=== PATIENT | male | born 1975 ===

== ENCOUNTER 2017-03-29 18:55 | Emergency (ER) | payer OTHER ==
[2017-03-29 19:17] VITALS: RESP 16
--- NOTE | 2017-03-29 19:51 | ED PDOC ---
HPI: General Adult Time Seen by Provider: 03/29/17 19:20 Chief Complaint (Nursing): Fever Chief Complaint (Provider): fever History Per: Patient History/Exam Limitations: no limitations Onset/Duration Of Symptoms: Days (1/2 day), Sudden Onset, Persistent Additional Complaint(s): Fever, chills, vomiting nonbilious nonbloody, body aches, malaise, fatigue suddenly since 12pm No respiratory symptoms No urinary symptoms Took med but symptoms returned. Past Medical History Reviewed: Historical Data, Nursing Documentation, Vital Signs Vital Signs: Last Vital Signs Temp 98.7 F 03/29/17 21:44 Pulse 74 03/29/17 21:44 Resp 16 03/29/17 21:44 BP 105/54 L 03/29/17 21:44 Pulse Ox 96 03/29/17 21:44 - Medical History PMH: Hepatitis (C) Denies: HIV - Surgical History Surgical History: No Surg Hx - Family History Family History: States: Unknown Family Hx - Social History Current smoker - smoking cessation education provided: No Alcohol: None - Home Medications Home Medications: Ambulatory Orders Medication Instructions Recorded Cephalexin [cephalexin] 500 mg PO BID #14 cap 10/01/16 Ibuprofen [Motrin] 600 mg PO Q6 #20 tab 10/01/16 oxyCODONE/Acetaminophen [Percocet 1 ea PO Q6 PRN #10 tab 10/01/16 5/325 mg Tab] Ibuprofen [Motrin Tab] 600 mg PO Q8 PRN #60 tab 03/29/17 - Allergies Allergies/Adverse Reactions: Allergies Allergy/AdvReac Type Severity Reaction Status Date / Time No Known Allergies Allergy Verified 04/30/16 12:14 Review of Systems ROS Statement: Except As Marked, All Systems Reviewed And Found Negative (and as per HPI) Constitutional: Positive for: Fever, Chills, Weakness, Malaise ENT: Negative for: Nose Discharge, Nose Congestion, Throat Pain Cardiovascular: Positive for: Light Headedness. Negative for: Chest Pain, Palpitations Respiratory: Negative for: Cough, Sputum Gastrointestinal: Positive for: Nausea, Vomiting. Negative for: Abdominal Pain , Diarrhea Genitourinary Male: Negative for: Dysuria, Frequency, Rash Musculoskeletal: Positive for: Neck Pain, Shoulder Pain, Arm Pain, Back Pain, Leg Pain Skin: Negative for: Rash, Lesions Neurological: Positive for: Headache, Dizziness. Negative for: Weakness, Numbness Physical Exam - Reviewed Nursing Documentation Reviewed: Yes Vital Signs Reviewed: Yes - Physical Exam Appears: Positive for: Uncomfortable, In Acute Distress (mild painful) Head Exam: Positive for: ATRAUMATIC, NORMOCEPHALIC Skin: Positive for: Warm, Dry Eye Exam: Positive for: EOMI, PERRL ENT: Positive for: Other (tacky muc membranes). Negative for: Pharyngeal Erythema, Tonsillar Exudate Neck: Positive for: Painless ROM, Supple (No meningismus) Cardiovascular/Chest: Positive for: Regular Rate, Rhythm, Chest Non Tender. Negative for: Murmur Respiratory: Positive for: Normal Breath Sounds. Negative for: Accessory Muscle Use, Rales, Wheezing, Respiratory Distress Gastrointestinal/Abdominal: Positive for: Bowel Sounds, Soft. Negative for: Tenderness Back: Positive for: Normal Inspection. Negative for: Vertebral Tenderness Extremity: Positive for: Normal ROM. Negative for: Pedal Edema, Deformity Lymphatic: Negative for: Adenopathy Neurologic/Psych: Positive for: Alert. Negative for: Motor/Sensory Deficits - Laboratory Results Result Diagrams: 03/29/17 20:09 03/29/17 20:09 Interpretation Of Abn Labs: No clinically emergent lab abnormalities. - ECG O2 Sat by Pulse Oximetry: 97 Pulse Ox Interpretation: Normal - Progress Re-evaluation Time: 23:11 Condition: Improved Disposition - Clinical Impression Clinical Impression: Fever, Viral illness - Disposition Referrals: [facility] [Outside] - 03/31/17 Disposition: Routine/Home Disposition Time: 22:00 Condition: IMPROVED Prescriptions: Ibuprofen [Motrin Tab] 600 mg PO Q8 PRN #60 tab PRN Reason: Pain, Moderate (4-7) Instructions: Viral Syndrome (ED), Fever in Adults (ED) Forms: [facility] ED School/Work Excuse Print Language: OCCITAN
[2017-03-29] MEDS: Sodium Chloride 0.9% 1,000 ML IV STA (20:10)
[2017-03-29 20:39] LABS: BASO % 0.4 % (0.0-2.0); EOS % 0.2 % (0.0-4.0); HEMOGLOBIN 13.3 g/dL (12.0-18.0); LYMPH # 0.4 K/uL (1.0-4.3); LYMPH % 6.7 % (20.0-40.0); MEAN CELL VOLUME 94.9 fl (80.0-94.0); MEAN CORPUSCULAR HEMOGLOBIN 31.9 pg (27.0-31.0); MEAN CORPUSCULAR HGB CONC 33.6 g/dL (33.0-37.0); MEAN PLATELET VOLUME 9.8 fl (7.2-11.7); MONO # 0.3 K/uL (0.0-0.8); MONO % 5.3 % (0.0-10.0); NEUT # 5.2 K/uL (1.8-7.0); NEUT % 87.4 % (50.0-75.0); NRBC % 0.1 % (0.0-0.0); PLATELET COUNT 158 K/uL (130-400); RBC 4.17 Mil/uL (4.40-5.90); WHITE BLOOD COUNT 5.9 K/uL (4.8-10.8)
[2017-03-29 20:50] LABS: INR 1.2 (0.9-1.2); PARTIAL THROMBOPLASTIN TIME 38.6 Seconds (25.6-37.1); PROTHROMBIN TIME 13.6 Seconds (9.8-13.1)
[2017-03-29 20:55] LABS: ALB/GLOB RATIO 1.3 (1.0-2.1); ALBUMIN 4.7 g/dL (3.5-5.0); ALT/SGPT 55 U/L (21-72); AST/SGOT 42 U/L (17-59); BLOOD UREA NITROGEN 12 mg/dl (9-20); CALCIUM 9.2 mg/dL (8.4-10.2); GFR AFRICAN-AMERICAN > 60; GFR NON-AFRICAN AMERICAN > 60; LIPASE 116 U/L (23-300)
[2017-03-29 21:23] LABS: URINE BILIRUBIN NEGATIVE (NEGATIVE); URINE BLOOD NEGATIVE (NEGATIVE); URINE CLARITY CLEAR (Clear); URINE COLOR YELLOW (YELLOW); URINE GLUCOSE (UA) NEG (Normal); URINE LEUKOCYTE ESTERASE TRACE Leu/uL (Negative); URINE NITRATE NEGATIVE (NEGATIVE); URINE PROTEIN NEGATIVE (NEGATIVE); URINE UROBILINOGEN 0.2-1.0 mg/dL (0.2-1.0)
[2017-03-29 21:39] LABS: BENZODIAZEPINES, UR NEGATIVE (NEGATIVE); OPIATES, UR NEGATIVE (NEGATIVE)
[2017-03-29 21:45] VITALS: BP 105/54; PULSE 74; TEMP 98.7
[2017-03-29 21:48] LABS: BARBITURATES, UR NEGATIVE (NEGATIVE)
[2017-03-29 21:49] LABS: PHENCYCLIDINE, UR NEGATIVE (NEGATIVE)
[2017-03-29 22:05] LABS: ANISOCYTOSIS SLIGHT; LYMPHOCYTE 7 % (20-50); MONOCYTE 6 % (0-10); NEUTROPHIL 87 % (42-75); PLATELET ESTIMATE NORMAL (NORMAL); TOTAL CELLS COUNTED 100
[2017-03-29 23:11] VITALS: O2SAT 97
== END 2017-03-29 23:15 | disposition home or self-care (01) ==
LOC: H.ER 18:55
DX: B34.9 Viral infection, unspecified (principal)

== ENCOUNTER 2017-03-30 16:01 | Observation (INO) | payer OTHER ==
[2017-03-30 16:16] VITALS: RESP 18
[2017-03-30] MEDS ORDERED: Sodium Chloride 0.9% 2,000 ML IV ONE (16:45)
--- NOTE | 2017-03-30 16:45 | ED PDOC ---
Arrival/HPI - General Chief Complaint: Fever Time Seen by Provider: 03/30/17 16:22 - History of Present Illness Narrative History of Present Illness (Text): 03/30/17 16:44 Patient is a 41 y/o M presenting complaining of vomiting. Patient was seen in the ED yesterday for fever/chills and vomiting and was discharged home with diagnosis of viral syndrome after negative CBC, CMP, UA, Utox, influenza and strep). Patient reports that he has had persistent nausea and has not been able to eat anything. He reports that he has now developed a mild headache. Reports subjective fever and chills. Denies abdominal pain, diarrhea, constipation. Patient reports that he was admitted for similar symptoms last year (chart review shows admitted in 04/2015 for similar symptoms, diagnosed with fever of unknown origin (after negative ID workup) and he reports that symptoms were far worse last time. Janitorial Tech Phone: Allie [phone] Past Medical History - Infectious Disease Hx of Infectious Diseases: None - Reproductive Currently : No - Hematological/Oncological Hx AIDS: No Hx Hepatitis C: Yes - Musculoskeletal/Rheumatological Hx Falls: No - Gastrointestinal Other/Comment: Hepatitis C - Psychiatric Hx Substance Use: No - Anesthesia Hx Anesthesia: No Hx Anesthesia Reactions: No Hx Malignant Hyperthermia: No - Suicidal Assessment Feels Threatened In Home Enviroment: No Family/Social History Family/Social History: No Known Family HX Smoking Status: Never Smoked Hx Alcohol Use: No Hx Substance Use: No Allergies/Home Meds Allergies/Adverse Reactions: Allergies No Known Allergies Allergy (Verified 04/30/16 12:14) Review of Systems - Review of Systems Constitutional: Fevers (subjective), Night Sweats Eyes: absent: Vision Changes ENT: absent: Hearing Changes Respiratory: absent: SOB, Cough, Sputum, Wheezing Cardiovascular: absent: Chest Pain, Palpitations, Edema, Calf Pain, KENYON, Orthopnea, Syncope Gastrointestinal: Nausea, Vomiting. absent: Abdominal Pain, Diarrhea Genitourinary Male: Other (dark urine). absent: Dysuria, Frequency, Urinary Output Changes Musculoskeletal: Arthralgias Skin: absent: Rash Neurological: Headache. absent: Dizziness, Focal Weakness, Gait Changes, Speech Changes, Facial Droop, Disequilibrium Physical Exam Vital Signs Temp Pulse Resp BP Pulse Ox 03/30/17 21:02 98.2 F 77 18 115/51 L 100 03/30/17 20:50 98 07/13/17 18:26 98.7 F 74 114/63 98 03/30/17 16:14 99 F 84 18 125/56 L 99 Medical Decision Making ED Course and Treatment: Patient presenting with persistent vomiting. Now complaining of some headache. Neck supple and afebrile in ED. No meningeal signs 03/30/17 18:10 Cxray negative 03/30/17 18:34 Labs resulted and CBC WNL (wbc 4.9 and hgb:13.4). CMP shows low K and phos which was replaced. Mild elevation in LFTs. CK 223 which is improved from yesterday. HIV non-reactive. UA is tahmina colored with trace ketones, 9 rbcs and [address] abd/pelvis without contrast ordered to evaluate further. 03/30/17 18:58 CT shows "No significant or acute findings to account for/ related to the clinical presentation. Additional benign and/or incidental findings described above." Patient is currently getting IVF. Will po challenge and have Dr. Castellanos reevaluate and keep for intractable vomiting if he does not tolerate po. - Lab Interpretations Microbiology Results: Microbiology Results 03/30/17 16:45 Blood Blood Culture - Preliminary NO GROWTH AFTER 3 DAYS 03/30/17 16:45 Urine Urine Culture - Final No Growth (<1,000 CFU/ML) Lab Results: 03/30/17 16:45 03/30/17 16:45 Lab Results 03/30/17 16:45: PT 15.8 H, INR 1.4 H, APTT 36.1 03/30/17 16:45: Urine Color Tahmina, Urine Clarity Clear, Urine pH 5.0, Ur Specific [place] 1.030, Urine Protein 30, Urine Glucose (UA) Neg, Urine Ketones Trace, Urine Blood Negative, Urine Nitrate Negative, Urine Bilirubin Negative, Urine Urobilinogen 2.0, Ur Leukocyte Esterase Neg, Urine RBC (Auto) 9 H, Urine Microscopic WBC 2, Ur Squamous Epith Cells < 1, Urine Bacteria Rare 03/30/17 16:45: HIV-1 Ab Rapid Screen Non reactive 03/30/17 16:45: WBC 4.9, RBC 4.30 L, Hgb 13.4, Hct 41.1, MCV 95.7 H, MCH 31.2 H , MCHC 32.6 L, RDW 13.2, Plt Count 127 L D, MPV 9.9, Neut % (Auto) 92.6 H, Lymph % (Auto) 3.6 L, Emanuel % (Auto) 3.2, Eos % (Auto) 0.1, Baso % (Auto) 0.5, Neut # 4.5, Lymph # 0.2 L, Emanuel # 0.2, Eos # 0.0, Baso # 0.0, Total Counted Cancelled, Neutrophils % (Manual) 92 H, Band Neutrophils % 1, Lymphocytes % ( Manual) 3 L, Reactive Lymphs % Cancelled, Monocytes % (Manual) 4, Eosinophils % (Manual) Cancelled, Basophils % (Manual) Cancelled, Metamyelocytes % Cancelled, Myelocytes % Cancelled, Promyelocytes % Cancelled, Blast Cells % Cancelled, Plasma Cell % (Manual) Cancelled, Nucleated RBC % Cancelled, Hypersegmented Polys Cancelled, Smudge Cells Cancelled, Toxic Granulation Cancelled, Dohle Bodies Cancelled, Jaime Rods Cancelled, Platelet Estimate Normal, Plt Clumps, EDTA Cancelled, Large Platelets Present, Giant Platelets Present, RBC Morphology Cancelled, Polychromasia Cancelled, Hypochromasia (manual) Cancelled , Poikilocytosis (manual Cancelled, Basophilic Stippling Cancelled, Anisocytosis (manual) Slight, Microcytosis (manual) Cancelled, Macrocytosis ( manual) Cancelled, Spherocytes Cancelled, Sickle Cells Cancelled, Target Cells Cancelled, Tear Drop Cells Cancelled, Ovalocytes Cancelled, Stomatocytes Cancelled, Helmet Cells Cancelled, [place] Bodies Cancelled, Payton Cells Cancelled, Acanthocytes (Spur) Cancelled, Rouleaux Cancelled, Schistocytes Cancelled 03/30/17 16:45: Sodium 136, Potassium 3.3 L, Chloride 102, Carbon Dioxide 24, Anion Gap 13, BUN 12, Creatinine 1.2, Est GFR ( Amer) > 60, Est GFR (Non- Af Amer) > 60, Random Glucose 94, Calcium 8.7, Phosphorus 2.0 L, Magnesium 1.7, Total Bilirubin 0.9, AST 81 H D, ALT 75 H D, Alkaline Phosphatase 92, Total Creatine Kinase 223 H, CK-MB (Mass) 0.27, Total Protein 7.5, Albumin 4.1, Globulin 3.3, Albumin/Globulin Ratio 1.2, Lipase 102 - RAD Interpretation Radiology Orders: 03/30/17 16:42 CHEST PORTABLE [RAD] Stat 03/30/17 18:19 ABD & PELVIS W/O PO OR IV CONT [CT] Stat - Medication Orders Current Medication Orders: Discontinued Medications Acetaminophen (Tylenol 325mg Tab) 650 mg PO STAT STA Stop: 03/30/17 16:56 Last Admin: 03/30/17 17:02 Dose: 650 mg Re-Assess: LIEN Pain/Vitals Document 03/30/17 18:02 HPB (Rec: 03/30/17 18:45 HPB [id number]) Pain Reassessment Is This A Pain ReAssessment? No Sleep Is patient sleeping during reassessment? No Presence of Pain Presence of Pain Yes Pain Scale Used Pain Scale Used Numeric Acetaminophen (Tylenol 325mg Tab) Confirm Administered Dose 650 mg .ROUTE .STK- MED ONE Stop: 03/30/17 17:00 Sodium Chloride (Sodium Chloride 0.9%) 2,000 mls @ 1,000 mls/hr IV .Q2H ONE Stop: 03/30/17 18:44 Last Admin: 03/30/17 17:01 Dose: 1,000 mls/hr Sodium Chloride (Sodium Chloride 0.9%) Confirm Administered Dose 50 mls @ ud IV .STK-MED ONE Stop: 03/30/17 18:05 Iohexol (Omnipaque 300 100 Ml) Confirm Administered Dose 100 ml IJ .STK-MED ONE Stop: 03/30/17 18:05 Ondansetron HCl (Zofran Inj) 4 mg IVP STAT STA Stop: 03/30/17 16:48 Last Admin: 03/30/17 17:03 Dose: 4 mg Ondansetron HCl (Zofran Inj) Confirm Administered Dose 4 mg .ROUTE .STK-MED ONE Stop: 03/30/17 17:01 Potassium Chloride (K-Dur 20 Meq Er Tab) 20 meq PO STAT STA Stop: 03/30/17 18:26 Last Admin: 03/30/17 18:50 Dose: 20 meq Potassium Chloride (K-Dur 20 Meq Er Tab) Confirm Administered Dose 20 meq PO .STK-MED ONE Stop: 03/30/17 18:45 Potassium Phos/Sodium Phos (Neutra-Phos) 1 pkt PO STAT STA Stop: 03/30/17 18:25 Last Admin: 03/30/17 18:51 Dose: 1 pkt ED OBSERVATION Date of observation admission: 03/30/17 Time of observation admission: 19:12 - Observation admission statement Patient is being placed in observation because:: intractable vomiting - Goals of Observation Goals of observation are:: IV hydration Disposition/Present on Arrival - Present on Arrival Any Indicators Present on Arrival: No History of DVT/PE: No History of Uncontrolled Diabetes: No Urinary Catheter: No - Disposition Have Diagnosis and Disposition been Completed?: Yes Diagnosis: Viral syndrome Disposition: HOME/ ROUTINE Disposition Time: 19:12 Condition: STABLE
[2017-03-30 17:11] LABS: BASO % 0.5 % (0.0-2.0); EOS % 0.1 % (0.0-4.0); HEMOGLOBIN 13.4 g/dL (12.0-18.0); LYMPH # 0.2 K/uL (1.0-4.3); LYMPH % 3.6 % (20.0-40.0); MEAN CELL VOLUME 95.7 fl (80.0-94.0); MEAN CORPUSCULAR HEMOGLOBIN 31.2 pg (27.0-31.0); MEAN CORPUSCULAR HGB CONC 32.6 g/dL (33.0-37.0); MEAN PLATELET VOLUME 9.9 fl (7.2-11.7); MONO # 0.2 K/uL (0.0-0.8); MONO % 3.2 % (0.0-10.0); NEUT # 4.5 K/uL (1.8-7.0); NEUT % 92.6 % (50.0-75.0); NRBC % 0.1 % (0.0-0.0); PLATELET COUNT 127 K/uL (130-400); RED CELL DISTRIBUTION WIDTH 13.2 % (11.5-14.5); WHITE BLOOD COUNT 4.9 K/uL (4.8-10.8)
[2017-03-30 17:16] LABS: SQUAMOUS EPITHIAL < 1 /hpf (0-5); URINE BACTERIA RARE (<OCC); URINE BILIRUBIN NEGATIVE (NEGATIVE); URINE BLOOD NEGATIVE (NEGATIVE); URINE CLARITY CLEAR (Clear); URINE COLOR AMBER (YELLOW); URINE GLUCOSE (UA) NEG (Normal); URINE LEUKOCYTE ESTERASE NEG Leu/uL (Negative); URINE NITRATE NEGATIVE (NEGATIVE); URINE PROTEIN 30 mg/dL (NEGATIVE)
--- NOTE | 2017-03-30 17:21 | RAD ---
HISTORY: subjective fever COMPARISON: 04/24/2015 FINDINGS: LUNGS: No active pulmonary disease. PLEURA: No significant pleural effusion identified, no pneumothorax apparent. CARDIOVASCULAR: Normal. OSSEOUS STRUCTURES: No significant abnormalities. VISUALIZED UPPER ABDOMEN: Normal. OTHER FINDINGS: None. IMPRESSION: No active disease. No significant interval change compared to the prior examination(s).
[2017-03-30 17:32] LABS: ALB/GLOB RATIO 1.2 (1.0-2.1); ALBUMIN 4.1 g/dL (3.5-5.0); ALT/SGPT 75 U/L (21-72); AST/SGOT 81 U/L (17-59); BLOOD UREA NITROGEN 12 mg/dl (9-20); CALCIUM 8.7 mg/dL (8.4-10.2); GFR AFRICAN-AMERICAN > 60; GFR NON-AFRICAN AMERICAN > 60; LIPASE 102 U/L (23-300); MAGNESIUM 1.7 MG/DL (1.6-2.3)
[2017-03-30 17:36] LABS: INR 1.4 (0.9-1.2); PARTIAL THROMBOPLASTIN TIME 36.1 Seconds (25.6-37.1); PROTHROMBIN TIME 15.8 Seconds (9.8-13.1)
[2017-03-30 17:40] LABS: CK-MB 0.27 ng/mL (0.0-3.38)
[2017-03-30] MEDS ORDERED: Sodium Chloride 0.9% 0 ML IV ONE (18:04)
[2017-03-30] MEDS ORDERED: Iohexol 300 100 ML IJ ONE (18:04)
[2017-03-30] MEDS ORDERED: Potassium & Sodium Phosphate PO STA (18:24)
[2017-03-30] MEDS ORDERED: Potassium Chloride 20 mEq ER Tab PO STA (18:25)
[2017-03-30] MEDS ORDERED: Potassium Chloride 20 mEq ER Tab PO ONE (18:44)
--- NOTE | 2017-03-30 19:03 | CT ---
PROCEDURE: CT Abdomen and Pelvis without intravenous contrast HISTORY: hematuria COMPARISON: 04/23/2015 CT abdomen pelvis TECHNIQUE: Unenhanced study. Neither oral nor intravenous contrast administered. Radiation dose: Total exam DLP = 706.15 mGy-cm. This CT exam was performed using one or more of the following dose reduction techniques: Automated exposure control, adjustment of the mA and/or kV according to patient size, and/or use of iterative reconstruction technique. FINDINGS: LOWER THORAX: Unremarkable. LIVER: Unremarkable. No gross lesion or ductal dilatation. GALLBLADDER AND BILE DUCTS: Unremarkable. PANCREAS: Unremarkable. No gross lesion or ductal dilatation. SPLEEN: Unremarkable. ADRENALS: Unremarkable. No mass. KIDNEYS AND URETERS: Unremarkable. No hydronephrosis. No solid mass. VASCULATURE: Unremarkable. No aortic aneurysm. BOWEL: Unremarkable. No obstruction. No gross mural thickening. APPENDIX: No abnormalities to suggest acute appendicitis. No right lower quadrant inflammatory processes identified. PERITONEUM: Unremarkable. No free fluid. No free air. LYMPH NODES: Unremarkable. No enlarged lymph nodes. BLADDER: Unremarkable. REPRODUCTIVE: Unremarkable. BONES: No acute fracture. OTHER FINDINGS: Benign-appearing intra-abdominal calcification less than 1 cm likely dystrophic common not felt to be clinically consequential. IMPRESSION: No significant or acute findings to account for/ related to the clinical presentation. Additional benign and/or incidental findings described above.
--- NOTE | 2017-03-30 19:18 | ED PDOC ---
- Laboratory Results Result Diagrams: 03/30/17 16:45 03/30/17 16:45 - ECG O2 Sat by Pulse Oximetry: 98 (RA) Pulse Ox Interpretation: Normal Medical Decision Making Medical Decision Making: Receiving Sign Out: Patient signed out to me by Dr. Campbell pending reevaluation and final disposition. Scribe Attestation: Documented by Daniella Tatum acting as a scribe for Dustin Castellanos MD. Provider Attestation: All medical record entries made by the Scribe were at my direction and personally dictated by me. I have reviewed the chart and agree that the record accurately reflects my personal performance of the history, physical exam, medical decision making, and the department course for this patient. I have also personally directed, reviewed, and agree with the discharge instructions and disposition. Disposition - Clinical Impression Clinical Impression: Viral syndrome - POA Present On Arrival: None - Disposition Disposition: Routine/Home Disposition Time: 19:11 Condition: STABLE ED OBSERVATION Date of observation admission: 03/30/17 Time of observation admission: 19:11 - Progress Note Progress Note: 03/30/17 20:49 Labs reviewed and indicate no clinically significant results. Patient reports feeling much better, is stable for discharge home. Final diagnosis: viral syndrome
[2017-03-30 20:43] LABS: BANDS 1 % (0-2); LYMPHOCYTE 3 % (20-50); MONOCYTE 4 % (0-10); NEUTROPHIL 92 % (42-75); PLATELET ESTIMATE NORMAL (NORMAL); TOTAL CELLS COUNTED 100
[2017-03-30 20:44] LABS: ANISOCYTOSIS SLIGHT; GIANT PLATELETS PRESENT; LARGE PLATELETS PRESENT
[2017-03-30 21:02] VITALS: BP 115/51; PULSE 77; TEMP 98.2; O2SAT 100
== END 2017-03-30 21:08 | disposition home or self-care (01) ==
LOC: H.ER 16:01 → H.EROBSV 19:11
PROVIDERS: ADMIT Emergency Medicine; ATTEND Emergency Medicine
DX: B34.9 Viral infection, unspecified (principal)

== ENCOUNTER 2017-04-09 14:39 | Emergency (ER) | payer OTHER ==
[2017-04-09] MEDS ORDERED: Sodium Chloride 0.9% 1,000 ML IV STA (15:26)
--- NOTE | 2017-04-09 15:32 | ED PDOC ---
HPI: Headache Time Seen by Provider: 04/09/17 14:57 Chief Complaint (Nursing): Headache Chief Complaint (Provider): Headache History Per: Patient History/Exam Limitations: no limitations Onset/Duration Of Symptoms: Days (3) Current Symptoms Are (Timing): Still Present Associated Symptoms: denies: Photophobia, Blurred Vision, Nausea, Vomiting, Extremity Weakness Additional History Per: Patient Additional Complaint(s): The patient is a 41yo male, past medical history of Hepatitis C (per prior records) presents to the ED for evaluation of headache associated with bodyaches , present for the past three days. He also reports associated mild neck pain and nausea. Patient denies any associated vomiting, rhinorrhea, nasal congestion , cough, vision changes, abdominal pain, diarrhea, dysuria, urinary symptoms, shortness of breath, numbness and tingling. Of note, patient reports he was in this ED 10 days ago for similar complaints, he was initially seen on 03/29/17 and upon review of chart, patient had CBC, CMP, UA, Utox, influenza and strep reviewed which were all negative and was discharge home with a diagnosis of viral disease. Patient then presented to this ED on 03/30/17 with persistent symptoms and had repeat labs which were within normal limits, CT AP with no acute findings. Patient was given IV fluids as well as K-Dur, Neutra-Phos, a PO challenge which he tolerated and was discharged home. Patient currently reports after his visit on 03/30 his symptoms resolved within 3 days of that visit but then presented again three days ago, prompting his visit today. Upon further review of previous charts, patient was admitted for similar symptoms in 05/02 and was diagnosed with fever of unknown origin after a negative ID workup. Patient currently states this is not the worst headache he has had and reports his previous presentations were much worse. He states he currently does not follow up with a primary care provider. Patient denies any pertinent past medical history and denies any known drug allergies. Currently, patient has no other medical complaints. Past Medical History Reviewed: Historical Data, Nursing Documentation, Vital Signs Vital Signs: Last Vital Signs Temp 99.6 F 04/09/17 14:47 Pulse 82 04/09/17 14:47 Resp 16 04/09/17 14:47 BP 101/51 L 04/09/17 14:47 Pulse Ox 98 04/09/17 14:47 - Medical History PMH: Hepatitis (C) Denies: HIV - Surgical History Surgical History: No Surg Hx - Family History Family History: States: Unknown Family Hx - Living Arrangements Living Arrangements: With Family - Social History Current smoker - smoking cessation education provided: No Alcohol: None Drugs: Denies - Home Medications Home Medications: Ambulatory Orders Medication Instructions Recorded Cephalexin [cephalexin] 500 mg PO BID #14 cap 10/01/16 Ibuprofen [Motrin] 600 mg PO Q6 #20 tab 10/01/16 oxyCODONE/Acetaminophen [Percocet 1 ea PO Q6 PRN #10 tab 10/01/16 5/325 mg Tab] Ibuprofen [Motrin Tab] 600 mg PO Q8 PRN #60 tab 03/29/17 Ondansetron ODT [Zofran ODT] 4 mg PO Q6 PRN #16 odt 03/30/17 Ibuprofen [Motrin] 600 mg PO TID 7 Days 04/09/17 - Allergies Allergies/Adverse Reactions: Allergies Allergy/AdvReac Type Severity Reaction Status Date / Time No Known Allergies Allergy Verified 04/30/16 12:14 Review of Systems ROS Statement: Except As Marked, All Systems Reviewed And Found Negative Constitutional: Positive for: Malaise (generalized bodyaches). Negative for: Fever, Chills ENT: Negative for: Nose Discharge, Nose Congestion Respiratory: Negative for: Shortness of Breath Gastrointestinal: Positive for: Nausea. Negative for: Vomiting, Abdominal Pain , Diarrhea Genitourinary Male: Negative for: Dysuria, Frequency, Incontinence, Hematuria Musculoskeletal: Positive for: Neck Pain (mild) Neurological: Positive for: Headache. Negative for: Weakness, Numbness, Other ( photophobia, vision changes) Physical Exam - Physical Exam Appears: Positive for: Non-toxic, No Acute Distress Head Exam: Positive for: ATRAUMATIC, NORMAL INSPECTION (mild pain upon movement of head), NORMOCEPHALIC Skin: Positive for: Normal Color, Warm Eye Exam: Positive for: Normal appearance, EOMI, PERRL Neck: Positive for: Normal, Painless ROM, Supple Cardiovascular/Chest: Positive for: Regular Rate, Rhythm. Negative for: Edema Respiratory: Positive for: Normal Breath Sounds. Negative for: Respiratory Distress Gastrointestinal/Abdominal: Positive for: Normal Exam, Soft. Negative for: Tenderness Back: Positive for: Normal Inspection. Negative for: L CVA Tenderness, R CVA Tenderness Extremity: Positive for: Normal ROM. Negative for: Tenderness, Pedal Edema, Deformity, Swelling Neurologic/Psych: Positive for: Alert, Oriented. Negative for: Motor/Sensory Deficits - Laboratory Results Result Diagrams: 04/09/17 16:00 04/09/17 16:00 Interpretation Of Abn Labs: increased ast/alt seen previous labs Interpretation Of Abnormal: csf no acute findings - ECG O2 Sat by Pulse Oximetry: 98 (RA) Pulse Ox Interpretation: Normal - CT Scan/US ct Other Rad Studies (CT/US): Read By Radiologist Other Rad Interpretation: no acute - Progress ED Course And Treament: 1910: Stable. AAOx3. Pain free. Tolerated PO. Fu with clinic. Ambulated with no issues. Medical Decision Making Medical Decision Making: Time: 151 Impression: Headache evaluation Plan: -- VBG -- CT Head -- CMP -- CBC -- Prothrombin Time -- PTT -- Blood Culture -- IV Fluids -- Reglan 10 mg IV -- Tylenol 650 mg PO Reassess Time: 1615 CT Head Impression: Normal CT of the head. Scribe Attestation: Documented by Daniella Tatum acting as a scribe for Yevgeniy Boyd MD. Provider Attestation: All medical record entries made by the Scribe were at my direction and personally dictated by me. I have reviewed the chart and agree that the record accurately reflects my personal performance of the history, physical exam, medical decision making, and the department course for this patient. I have also personally directed, reviewed, and agree with the discharge instructions and disposition. Procedures - Additional Procedures Additional Procedures: lumbar puncture Progress: Sterile technique used. Pt. identified. Consent obtained with certified lens fabricating machine tender. Sitting position. L4-L5 anesthetized with 1 cc 1% lido. Spinal needle advanced. Good csf return. Clear fluid obtained. Tolerated procedure well. Disposition - Clinical Impression Clinical Impression: Headache, Fever - Patient ED Disposition Is Patient to be Admitted: No Counseled Patient/Family Regarding: Studies Performed, Diagnosis, Need For Followup, Rx Given - Disposition Referrals: [facility] [Outside] - 04/10/17 Disposition: Routine/Home Disposition Time: 19:12 Condition: STABLE Additional Instructions: Return if not better in 3 days. Prescriptions: Ibuprofen [Motrin] 600 mg PO TID 7 Days Instructions: Acute Headache (ED), Fever in Adults (ED) Print Language: CITIZEN OF [place]
--- NOTE | 2017-04-09 16:10 | CT ---
PROCEDURE: CT HEAD WITHOUT CONTRAST. HISTORY: headache COMPARISON: None available. TECHNIQUE: Axial computed tomography images were obtained through the head/brain without intravenous contrast. Radiation dose: Total exam DLP = 857 mGy-cm. This CT exam was performed using one or more of the following dose reduction techniques: Automated exposure control, adjustment of the mA and/or kV according to patient size, and/or use of iterative reconstruction technique. FINDINGS: HEMORRHAGE: No intracranial hemorrhage. BRAIN: No mass effect or edema. No atrophy or chronic microvascular ischemic changes. VENTRICLES: Unremarkable. No hydrocephalus. CALVARIUM: Unremarkable. PARANASAL SINUSES: Unremarkable as visualized. No significant inflammatory changes. MASTOID AIR CELLS: Unremarkable as visualized. No inflammatory changes. OTHER FINDINGS: None. IMPRESSION: Normal CT of the Head.
[2017-04-09 16:15] LABS: VENOUS BLOOD GAS PCO2 42 mmHg (40-60); VENOUS BLOOD GAS PO2 55 mm/Hg (30-55)
[2017-04-09 16:19] LABS: BASO % 0.3 % (0.0-2.0); HEMOGLOBIN 12.7 g/dL (12.0-18.0); LYMPH # 0.6 K/uL (1.0-4.3); LYMPH % 10.2 % (20.0-40.0); MEAN CELL VOLUME 93.8 fl (80.0-94.0); MEAN CORPUSCULAR HEMOGLOBIN 31.5 pg (27.0-31.0); MEAN CORPUSCULAR HGB CONC 33.6 g/dL (33.0-37.0); MEAN PLATELET VOLUME 8.7 fl (7.2-11.7); MONO # 0.6 K/uL (0.0-0.8); MONO % 10.3 % (0.0-10.0); NEUT # 4.9 K/uL (1.8-7.0); NEUT % 79.2 % (50.0-75.0); NRBC % 0.1 % (0.0-0.0); RBC 4.01 Mil/uL (4.40-5.90); RED CELL DISTRIBUTION WIDTH 13.3 % (11.5-14.5); WHITE BLOOD COUNT 6.2 K/uL (4.8-10.8)
[2017-04-09 16:29] LABS: ALB/GLOB RATIO 1.1 (1.0-2.1); ALT/SGPT 155 U/L (21-72); AST/SGOT 61 U/L (17-59); BLOOD UREA NITROGEN 8 mg/dl (9-20); CALCIUM 8.5 mg/dL (8.4-10.2); GFR AFRICAN-AMERICAN > 60; GFR NON-AFRICAN AMERICAN > 60
[2017-04-09 16:44] LABS: INR 1.2 (0.9-1.2); PARTIAL THROMBOPLASTIN TIME 37.6 Seconds (25.6-37.1)
[2017-04-09 17:55] LABS: FLUID TYPE SPINAL FLUID
[2017-04-09 18:26] LABS: CSF APPEARANCE CLEAR/COLORLESS (CLEAR); CSF VOLUME 1 mL (0-1)
[2017-04-09 18:54] LABS: CSF MONO/MACROPHAGE 0 % (0-0)
[2017-04-09 19:09] VITALS: BP 112/60; PULSE 66; RESP 18; TEMP 98.8; O2SAT 98
== END 2017-04-09 19:38 | disposition home or self-care (01) ==
LOC: H.ER 14:39
DX: R51 Headache (principal); R50.9 Fever, unspecified

== ENCOUNTER 2018-01-02 10:19 | Emergency (ER) | payer SELFPAY ==
[2018-01-02 10:26] VITALS: O2SAT 96; BMI 25.9
[2018-01-02] MEDS ORDERED: Sodium Chloride 0.9% 1,000 ML IV STA (11:22)
[2018-01-02 11:43] LABS: BASO % 0.6 % (0.0-2.0); EOS # 0.1 K/uL (0.0-0.7); EOS % 2.3 % (0.0-4.0); HEMOGLOBIN 13.5 g/dL (12.0-18.0); LYMPH # 1.2 K/uL (1.0-4.3); LYMPH % 25.6 % (20.0-40.0); MEAN CELL VOLUME 95.5 fl (80.0-94.0); MEAN CORPUSCULAR HEMOGLOBIN 32.5 pg (27.0-31.0); MEAN CORPUSCULAR HGB CONC 34.1 g/dL (33.0-37.0); MONO # 0.4 K/uL (0.0-0.8); MONO % 8.8 % (0.0-10.0); NEUT % 62.7 % (50.0-75.0); NRBC % 0.2 % (0.0-0.0); RBC 4.16 Mil/uL (4.40-5.90); RED CELL DISTRIBUTION WIDTH 13.4 % (11.5-14.5); WHITE BLOOD COUNT 4.8 K/uL (4.8-10.8)
[2018-01-02 11:49] LABS: ALB/GLOB RATIO 1.2 (1.0-2.1); ALBUMIN 4.1 g/dL (3.5-5.0); ALT/SGPT 52 U/L (21-72); AST/SGOT 34 U/L (17-59); BLOOD UREA NITROGEN 9 mg/dl (9-20); CALCIUM 9.1 mg/dL (8.4-10.2); GFR AFRICAN-AMERICAN > 60; GFR NON-AFRICAN AMERICAN > 60; LIPASE 62 U/L (23-300)
--- NOTE | 2018-01-02 12:59 | ED PDOC ---
HPI: Abdomen Time Seen by Provider: 01/02/18 10:20 Chief Complaint (Nursing): Abdominal Pain Chief Complaint (Provider): Abdominal Pain History Per: Patient History/Exam Limitations: no limitations Onset/Duration Of Symptoms: Days (x 2) Additional Complaint(s): Jj Cheung is a 42 years old male with history of Hepatitis C ( per prior records) presents to the ED complaining of abdominal pain associated with vomiting and diarrhea for 2 days. Patient denies experiencing any fever. positive sick contact with stomach virus. PMD: non provided Past Medical History Reviewed: Historical Data, Nursing Documentation, Vital Signs Vital Signs: Last Vital Signs Temp 97.8 F 01/02/18 13:00 Pulse 62 01/02/18 17:05 Resp 18 01/02/18 17:05 BP 116/68 01/02/18 17:05 Pulse Ox 96 01/02/18 17:08 - Medical History PMH: Hepatitis (C) Denies: HIV - Surgical History Surgical History: No Surg Hx - Family History Family History: States: Unknown Family Hx - Social History Current smoker - smoking cessation education provided: No Alcohol: None Drugs: Denies - Home Medications Home Medications: Ambulatory Orders Medication Instructions Recorded Cephalexin [cephalexin] 500 mg PO BID #14 cap 10/01/16 Ibuprofen [Motrin] 600 mg PO Q6 #20 tab 10/01/16 oxyCODONE/Acetaminophen [Percocet 1 ea PO Q6 PRN #10 tab 10/01/16 5/325 mg Tab] Ibuprofen [Motrin Tab] 600 mg PO Q8 PRN #60 tab 03/29/17 Ondansetron ODT [Zofran ODT] 4 mg PO Q6 PRN #16 odt 03/30/17 Ibuprofen [Motrin] 600 mg PO TID 7 Days tab 04/09/17 - Allergies Allergies/Adverse Reactions: Allergies Allergy/AdvReac Type Severity Reaction Status Date / Time No Known Allergies Allergy Verified 04/30/16 12:14 Review of Systems ROS Statement: Except As Marked, All Systems Reviewed And Found Negative Constitutional: Negative for: Fever, Chills Gastrointestinal: Positive for: Vomiting, Abdominal Pain, Diarrhea Physical Exam - Reviewed Nursing Documentation Reviewed: Yes Vital Signs Reviewed: Yes - Physical Exam Appears: Positive for: Non-toxic, No Acute Distress Head Exam: Positive for: ATRAUMATIC, NORMOCEPHALIC Skin: Positive for: Normal Color, Warm, Dry ENT: Positive for: Normal ENT Inspection Neck: Positive for: Normal, Painless ROM, Supple Cardiovascular/Chest: Positive for: Regular Rate, Rhythm. Negative for: Murmur Respiratory: Positive for: Normal Breath Sounds. Negative for: Respiratory Distress Gastrointestinal/Abdominal: Positive for: Normal Exam, Soft. Negative for: Tenderness Extremity: Positive for: Normal ROM Neurologic/Psych: Positive for: Alert, Oriented - Laboratory Results Result Diagrams: 01/02/18 11:27 01/02/18 11:27 - ECG O2 Sat by Pulse Oximetry: 96 (RA) Pulse Ox Interpretation: Normal Medical Decision Making Medical Decision Making: Time: 1122 Initial Plan: abdominal pain/vomiting/diarrhea --CMP --Lipase --CBC --NaCl 1,000 mL IV --Pepcid 20 mg IVP --Zofran 4 mg PO Time: 1330 CT Abdomen/Pelvis PO & IV Contrast is ordered. Time: 1653 CT Abdomen/pelvis FINDINGS: LOWER THORAX: Unremarkable. LIVER: Unremarkable. No gross lesion or ductal dilatation. GALLBLADDER AND BILE DUCTS: Unremarkable. PANCREAS: Unremarkable. No gross lesion or ductal dilatation. SPLEEN: Unremarkable. ADRENALS: Unremarkable. No mass. KIDNEYS AND URETERS: Unremarkable. No hydronephrosis. No solid mass. VASCULATURE: Unremarkable. No aortic aneurysm. BOWEL: Unremarkable. No obstruction. No gross mural thickening. APPENDIX: Normal appendix. PERITONEUM: Unremarkable. No free fluid. No free air. LYMPH NODES: Unremarkable. No enlarged lymph nodes. BLADDER: Unremarkable. REPRODUCTIVE: Normal prostate BONES: No acute fracture. OTHER FINDINGS: None. IMPRESSION: No acute abnormality. Unremarkable examination. CT findings discussed with patient.pt tolerated po. Patient reports improvement in symptom and is stable for discharge home. Informed to follow up with PCP in 2 -3 days. Scribe Attestation: Documented by Paulina Carrera, acting as a scribe for Celestino Alexander MD. Provider Scribe Attestation: All medical record entries made by the Scribe were at my direction and personally dictated by me. I have reviewed the chart and agree that the record accurately reflects my personal performance of the history, physical exam, medical decision making, and the department course for this patient. I have also personally directed, reviewed, and agree with the discharge instructions and disposition. Disposition - Clinical Impression Clinical Impression: Gastroenteritis - Patient ED Disposition Is Patient to be Admitted: No Counseled Patient/Family Regarding: Studies Performed, Diagnosis, Need For Followup - Disposition Referrals: [facility] [Outside] [facility] [Outside] Disposition: Routine/Home Disposition Time: 13:00 Condition: IMPROVED Additional Instructions: follow up with your primary doctor in 1-2 days return to the ED with any worsening or concerning symptoms Instructions: Gastroenteritis (ED) Forms: [facility] (Lao) Print Language: BRUNEIAN
[2018-01-02] MEDS ORDERED: Iohexol 240 (50 ml) PO ONE (13:30)
[2018-01-02] MEDS ORDERED: Iohexol 240 (50 ml) ONE (13:41)
[2018-01-02] MEDS ORDERED: Iohexol 300 100 ML IJ ONE (16:09)
[2018-01-02] MEDS ORDERED: Sodium Chloride 0.9% 100 ML ONE (16:16)
--- NOTE | 2018-01-02 16:55 | CT ---
PROCEDURE: CT Abdomen and Pelvis with contrast HISTORY: abdominal pain COMPARISON: 03/30/2017 TECHNIQUE: Contrast dose: 95 cc Omnipaque 300 Radiation dose: Total exam DLP = 398.61 mGy-cm. This CT exam was performed using one or more of the following dose reduction techniques: Automated exposure control, adjustment of the mA and/or kV according to patient size, and/or use of iterative reconstruction technique. FINDINGS: LOWER THORAX: Unremarkable. LIVER: Unremarkable. No gross lesion or ductal dilatation. GALLBLADDER AND BILE DUCTS: Unremarkable. PANCREAS: Unremarkable. No gross lesion or ductal dilatation. SPLEEN: Unremarkable. ADRENALS: Unremarkable. No mass. KIDNEYS AND URETERS: Unremarkable. No hydronephrosis. No solid mass. VASCULATURE: Unremarkable. No aortic aneurysm. BOWEL: Unremarkable. No obstruction. No gross mural thickening. APPENDIX: Normal appendix. PERITONEUM: Unremarkable. No free fluid. No free air. LYMPH NODES: Unremarkable. No enlarged lymph nodes. BLADDER: Unremarkable. REPRODUCTIVE: Normal prostate BONES: No acute fracture. OTHER FINDINGS: None. IMPRESSION: No acute abnormality. Unremarkable examination.
[2018-01-02 17:12] VITALS: BP 116/68; PULSE 62; RESP 18; TEMP 97.8
== END 2018-01-02 17:05 | disposition home or self-care (01) ==
LOC: H.ER 10:19
DX: K52.9 Noninfective gastroenteritis and colitis, unspecified (principal)
CPT/HCPCS: 74177; 80053; 83690; 85025; 96361; 96374; 99284; J7040; Q9966; Q9967